=== PATIENT | male | born 1965 | race Asian ===

== ENCOUNTER 2018-02-26 13:42 | Emergency (ER) | payer OTHER ==
--- NOTE | 2018-02-26 13:59 | EDPHY ---
H & P Stated Complaint: Rectal discomfort, loose stool Time Seen by Provider: 02/26/18 13:58 HPI/ROS: CHIEF COMPLAINT: Rectal discomfort HISTORY OF PRESENT ILLNESS: The patient presents the ED with a 1 day history of rectal discomfort. The patient has been having loose stools for the past several days. He denies any significant abdominal pain. He denies fever. The patient does have a history of hypertension and a solitary kidney. The patient denies any recent antibiotic use. The patient denies recent surgery or procedures. The patient reports his pain is only in the rectum and is only experienced when he is having bowel movements. REVIEW OF SYSTEMS: A comprehensive 10 point review of systems is otherwise negative aside from elements mentioned in the history of present illness. Source: Patient Exam Limitations: No limitations - Personal History Current Tetanus/Diphtheria Vaccine: No Current Tetanus Diphtheria and Acellular Pertussis (TDAP): No - Medical/Surgical History Hx Asthma: No Hx Chronic Respiratory Disease: No Hx Diabetes: No Hx Cardiac Disease: No Hx Renal Disease: No Hx Cirrhosis: No Hx Alcoholism: No Hx HIV/AIDS: No Hx Splenectomy or Spleen Trauma: No Other PMH: 1 KIDNEY, HTN, HYPERLIPIDEMIA - Social History Smoking Status: Former smoker - Physical Exam Exam: General Appearance: Alert, no distress Eyes: Pupils equal and round no pallor or injection ENT, Mouth: Mucous membranes moist Respiratory: There are no retractions, lungs are clear to auscultation Cardiovascular: Regular rate and rhythm Gastrointestinal: Abdomen is soft and nontender, no masses, bowel sounds normal Rectal: No obvious pericardial rectal abscess or hemorrhoid noted on exam. Patient did have significant tenderness with digital rectal exam. Neurological: 5/5 strength all 4 extremities Skin: Warm and dry, no rashes Musculoskeletal: Neck is supple nontender Extremities: symmetrical, full range of motion Psychiatric: Patient is oriented X 3, there is no agitation Constitutional: Initial Vital Signs Temperature (C) 36.6 C 02/26/18 13:44 Heart Rate 116 H 02/26/18 13:44 Respiratory Rate 16 02/26/18 13:44 Blood Pressure 121/96 H 02/26/18 13:44 O2 Sat (%) 96 02/26/18 13:44 O2 Delivery Mode Room Air Allergies/Adverse Reactions: No Known Allergies Allergy (Unverified 02/26/18 13:48) Home Medications: Medication Instructions Recorded Lipitor 02/26/18 Medical Decision Making - Diagnostics Imaging Results: Imaging Impressions Pelvis CT 02/26/18 14:57 Impression: Mild thickening of the wall of the rectum, without perirectal inflammatory changes or abscess. Results called to Dr. Yair Cunningham at 3:49 PM. ED Course/Re-evaluation: The patient presents the ED with a 1 day history of rectal tenderness and loose stools. The patient had significant tenderness noted on digital rectal exam without evidence of obvious fluctuance or abscess. There is no obvious hemorrhoid or fissure that I appreciate. Patient was taken for CT scan of the pelvis which demonstrates no evidence of a deep space abscess. Patient presents to the ED with a mild proctitis. Patient will be given a prescription for Proctofoam. Is advised to return to the ED for markedly worsening symptoms or other concerns. He should follow up with Gastroenterology for any unimproved symptoms. Differential Diagnosis: Differential diagnosis considered includes perirectal abscess, thrombosed hernia , anal fissure - Data Points Laboratory Results: Laboratory Results 02/26/18 14:04 02/26/18 14:04 02/26/18 02/26/18 14:04 14:04 WBC 7.42 10^3/uL 10^3/uL (3.80-9.50) RBC 5.60 10^6/uL 10^6/uL (4.40-6.38) Hgb 16.9 g/dL g/dL (13.7-17.5) Hct 47.9 % % (40.0-51.0) MCV 85.5 fL fL (81.5-99.8) MCH 30.2 pg pg (27.9-34.1) MCHC 35.3 g/dL g/dL (32.4-36.7) RDW 12.3 % % (11.5-15.2) Plt Count 228 10^3/uL 10^3/uL (150-400) MPV 11.0 fL fL (8.7-11.7) Neut % (Auto) 61.0 % % (39.3-74.2) Lymph % (Auto) 32.1 % % (15.0-45.0) Hickman % (Auto) 5.3 % % (4.5-13.0) Eos % (Auto) 0.3 % L % (0.6-7.6) Baso % (Auto) 0.5 % % (0.3-1.7) Nucleat RBC Rel Count 0.0 % % (0.0-0.2) Absolute Neuts (auto) 4.53 10^3/uL 10^3/uL (1.70-6.50) Absolute Lymphs (auto) 2.38 10^3/uL 10^3/uL (1.00-3.00) Absolute Monos (auto) 0.39 10^3/uL 10^3/uL (0.30-0.80) Absolute Eos (auto) 0.02 10^3/uL L 10^3/uL (0.03-0.40) Absolute Basos (auto) 0.04 10^3/uL 10^3/uL (0.02-0.10) Absolute Nucleated RBC 0.00 10^3/uL 10^3/uL (0-0.01) Immature Gran % 0.8 % % (0.0-1.1) Immature Gran # 0.06 10^3/uL 10^3/uL (0.00-0.10) Sodium 140 mEq/L mEq/L (135-145) Potassium 4.6 mEq/L mEq/L (3.3-5.0) Chloride 105 mEq/L mEq/L (97-110) Carbon Dioxide 21 mEq/l L mEq/l (22-31) Anion Gap 14 mEq/L mEq/L (6-14) BUN 14 mg/dL mg/dL (7-23) Creatinine 0.8 mg/dL mg/dL (0.7-1.3) Estimated GFR > 60 Glucose 99 mg/dL mg/dL (70-100) Calcium 10.4 mg/dL mg/dL (8.5-10.4) Departure - Departure Disposition: Home, Routine, Self-Care Clinical Impression: Rectal pain Condition: Good Instructions: Rectal Pain (ED) Additional Instructions: 1. Please use rectal steroid twice daily for the next 5 days. 2. Return to the ED for increasing pain, fever or other concerns. 3. Please follow up with a front office assistant you have been referred to for any ongoing symptoms of mild pain Referrals: Lonnie Curry MD [Medical Doctor] - As per Instructions
[2018-02-26 14:15] LABS: PLATELET COUNT 228 10^3/uL (150-400)
[2018-02-26] MEDS ORDERED: IOPAMIDOL (ISOVUE-300) 100 ML BTL ONE (15:15)
[2018-02-26 15:56] VITALS: BP 118/84
== END 2018-02-26 16:18 | disposition home or self-care (01) ==
DX: K62.89 Other specified diseases of anus and rectum (principal); I10 Essential (primary) hypertension; E78.5 Hyperlipidemia, unspecified; Z87.891 Personal history of nicotine dependence
CPT/HCPCS: Q9967